=== PATIENT | male | born 1955 | race Caucasian/White ===

== ENCOUNTER 2017-01-07 18:03 | Inpatient (IN) ==
[2017-01-07] MEDS ORDERED: ACETAMINOPHEN 325 MG TABLET PO PRN (21:04)
[2017-01-07] MEDS ORDERED: LACTATED RINGERS 2,000 ML IV ONE (21:06)
--- NOTE | 2017-01-07 21:09 | General Surg History&Physical ---
Assessment and Plan (1) Small bowel obstruction due to adhesions Status: Acute Assessment and plan: This patient has a small bowel obstruction recurrent the last one was 4 years ago. He does not have any acute indications for operative intervention. We will treat him with NG tube decompression and IV fluid and resuscitate him. He did have acute kidney injury with a creatinine of 1.9 at the outside hospital. We will repeat his labs tomorrow continue NG tube to suction overnight. Abdominal x-ray in the morning. Current Visit: Yes History of Present Illness Chief complaint: Abdominal pain History of present illness: Mr. Argueta is a 61 year old male with a history of recurrent small bowel obstructions who was directly admitted from [place] [facility] for small bowel obstruction. The patient states that he has had 4 bowel obstructions in the past and actually his first operation was for a bowel obstruction done about 15 years ago. He does not know what the cause was of the bowel obstruction or whether or not anything was removed but he has had 3 bowel obstruction since then and his last one was 5 years ago in [place], [place]. This was treated with bowel rest and decompression with an NG tube and he responded to this well. He started having pain today around noon and went to the ER for evaluation. He was found to have a small bowel obstruction on CT scan and directly admitted here for treatment. Allergies Allergy/AdvReac Type Severity Reaction Status Date / Time No Known Allergies Allergy Verified 01/07/17 21:04 Medical,Surgical,& Family Hx - Medical History Neurology: History of: Parkinson's Disease Gastrointestinal: History of: Bowel Obstruction, GERD - Surgical History Neurologic Surgeries: Patient denies: Neurologic Surgery Abdominal Surgeries: Surgical HX of: Abdominal Surgery (bowel obstruction), Cholecystectomy - Family History Family History: Reports;: Family Stroke (father), Additional Family History ( COPD- FATHER) - Social History Smoking Status: Never smoker Frequency of Alcohol Use: None Type of Drug Use: None Exam - Constitutional Vitals: Period Temp Pulse Resp BP Sys/Simon Pulse Ox Last 24 Hr 97 F 104 18 135/87 100 General appearance: no acute distress, over weight - Head Head exam: Present: normal inspection, normocephalic - Eye Eye exam: Present: EOMI Pupils: Present: NERY - ENT ENT exam: Present: normal exam Mouth exam: Present: normal external inspection, normal voice - Neck Neck exam: Present: normal inspection, trachea midline - Respiratory Respiratory exam: Present: clear to auscultation bilaterally. Absent: accessory muscle use, chest wall tenderness - Cardiovascular Cardiovascular exam: Present: RRR. Absent: systolic murmur, tachycardia - GI/Abdominal GI/Abdominal exam: Present: hypoactive bowel sounds, tenderness (Minimal diffuse abdominal tenderness with no peritoneal signs or focal point tenderness) , soft. Absent: hernia, rebound - Extremities Exam Extremities exam: Present: normal inspection, normal capillary refill - Back Exam Back exam: Present: normal inspection - Neurological Exam Neurological exam: Present: alert, oriented X3 Speech: Present: normal - Skin Skin exam: Present: normal color, warm - Constitutional Constitutional: Present: as per HPI - EENT Nose, mouth and throat: Present: as per HPI - Cardiovascular Cardiovascular: Present: as per HPI - Respiratory Respiratory: Present: as per HPI - Gastrointestinal Gastrointestinal: Present: as per HPI - Genitourinary Genitourinary: Present: as per HPI - Musculoskeletal Musculoskeletal: Present: as per HPI - Neurological Neurological: Present: as per HPI - Endocrine Endocrine: Present: as per HPI Hematologic/Lymphatic: Present: as per HPI Results - Diagnostic Findings Procedure: CT Abdomen and Pelvis: image reviewed by me, report reviewed by me ( Small bowel obstruction)
--- NOTE | 2017-01-07 21:35 | XRay Report ---
XR chest 1V portable Indication: NG tube placement. Comparison: None. Technique: Portable AP chest was performed. Findings: NG tube appears to extend into the upper gastric fundus and the tip lies just within the GE junction. Impression: 1. NG tube placement as detailed. 01/07/2017 9:31 PM PROCEDURE INTERPRETED AT [facility] DEPARTMENT OF RADIOLOGY Final Report Signed by: Dr. Gabriele Clay
[2017-01-07] MEDS: LACTATED RINGERS 1,000 ML IV SCH (22:28)
[2017-01-07] MEDS: HYDROmorphone 2 MG/1 ML VIAL IV PRN (23:20)
[2017-01-07] MEDS: ONDANSETRON 4 MG/2 ML VIAL IV PRN (23:21)
[2017-01-08 00:13] LABS: Apearance,Urine Slightly Hazy (Clear); Bilirubin,Urine Negative (Negative); Blood, Urine Negative (Negative); Glucose,Urine (UA) Negative (Negative); Granular Casts,Urine 1 /LPF (0-1); Hyaline Casts,Urine 24 /LPF (0-3); Ketones,Urine 5 mg/dL (Negative); Mucus,Urine Occasional /LPF (Occasional); Nitrite,Urine Negative (Negative); Protein,Urine Negative; Urine Color Yellow (Yellow); Urine Specific Gravity 1.014 (1.001-1.035); Urine Urobilinogen < 2.0 EU/DL (0.2-1.0)
[2017-01-08 06:34] LABS: Calcium 9.3 MG/DL (8.5-10.1); Osmolality,Calculated 284.3 MOS/KG (273-304); Potassium 4.6 MMOL/L (3.5-5.1)
[2017-01-08 06:47] LABS: Basophils % 0.1 % (0.0-0.8); Eosinophils % 0.1 % (0.00-10.9); Hematocrit 42.7 VOL% (42.0-52.0); Hemoglobin 15.1 GM/DL (14.0-18.0); Immature Granulocytes % 0.5 %; Immature Granulocytes Absolute 0.09 #; Lymphocytes # 1.4 10*3/uL (1.4-4.0); Lymphocytes % 8.2 % (21.2-54.2); Mean Corpuscular HGB Conc 35.4 GM/DL (32-36); Mean Corpuscular Hemoglobin 31 PG (27-34); Mean Corpuscular Volume 87.7 FL (87-102); Mean Platelet Volume 9.2 FL (9.6-12.0); Monocytes % 6.2 % (1.7-12.7); Neutrophils # 14.2 10*3/uL (1.4-7.4); Neutrophils % 84.9 % (38.7-73.9); Platelet Count 340 T/CUMM (130-400); Red Blood Count 4.87 MC/CUMM (3.8-5.5); Red Cell Distribution Width 12.8 % (9.3-17.3); White Blood Count 16.8 T/CUMM (4-12)
[2017-01-08] MEDS ORDERED: LACTATED RINGERS 1,000 ML IV ONE (07:15)
[2017-01-08] MEDS: LACTATED RINGERS 1,000 ML IV SCH ×4 (07:41→22:52)
[2017-01-08] MEDS ORDERED: PANTOPRAZOLE 40 MG TABLET PO SCH (09:00)
--- NOTE | 2017-01-08 12:15 | General Surgery Progress Note ---
Assessment and Plan (1) Small bowel obstruction due to adhesions Status: Acute Assessment and plan: This patient appears to be responding to nonoperative management. We will get a small bowel series with Gastrografin both for diagnostic and therapeutic effect. Continue NG tube to low intermittent wall suction and additional liter of LR to help with resuscitation today. Repeat labs tomorrow. Current Visit: Yes Subjective Patient reports: Present: no new complaints, feels better, pain is less, afebrile. Absent: nausea, vomiting Narrative: The patient had about 2 L of NG tube output that appears bilious. He feels much better after NG tube placement. No flatus or bowel movements yet. No abdominal pain this morning. White blood cell count is improving. Creatinine is also improving down to 1.7 this morning Exam - Constitutional Vitals: Period Temp Pulse Resp BP Sys/Simon Pulse Ox Last 24 Hr 97 F 104 18 135/87 100 General appearance: no acute distress, over weight - Head Head exam: Present: normal inspection, normocephalic - Eye Eye exam: Present: EOMI Pupils: Present: NERY - ENT ENT exam: Present: normal exam Mouth exam: Present: normal external inspection, normal voice - Neck Neck exam: Present: normal inspection, trachea midline - Respiratory Respiratory exam: Present: clear to auscultation bilaterally. Absent: accessory muscle use, chest wall tenderness - Cardiovascular Cardiovascular exam: Present: RRR. Absent: systolic murmur, tachycardia - GI/Abdominal GI/Abdominal exam: Present: distended, hypoactive bowel sounds, soft. Absent: tenderness, rebound - Extremities Exam Extremities exam: Present: normal inspection, normal capillary refill - Back Exam Back exam: Present: normal inspection - Neurological Exam Neurological exam: Present: alert, oriented X3 Speech: Present: normal - Skin Skin exam: Present: normal color, warm Results - Labs CBC & BMP: 01/08/17 04:00 01/08/17 04:00
[2017-01-08] MEDS: ONDANSETRON 4 MG/2 ML VIAL IV PRN ×2 (12:50→23:09)
[2017-01-08] MEDS: HYDROmorphone 2 MG/1 ML VIAL IV PRN ×2 (12:53→23:10)
[2017-01-08] MEDS: PANTOPRAZOLE 40 MG VIAL IV SCH (13:33)
--- NOTE | 2017-01-08 14:04 | XRay Report ---
Referring Physician: Dg Damian Exam: XR abdomen 2V Date: January 08, 2017 at 7:51 AM Reason: Generalized abdominal pain Comparison: CT abdomen and pelvis January 07, 2017 Findings: A feeding tube is in place with its distal tip curled just within the stomach near the gastroesophageal junction. There are several distended loops of small bowel with air-fluid levels present. However, there is also mild air within the colon. This is concerning for partial small bowel obstruction. No free air is identified. The renal shadows are largely obscured. Surgical clips are present within the right upper abdomen, consistent with cholecystectomy. No acute osseous process is seen. Impression: 1. A feeding tube is in place with its distal tip curled just within the stomach near the gastroesophageal junction. 2. There are distended loops of small bowel with air-fluid levels present. However, there is also mild air within the colon. This is concerning for partial small bowel obstruction. PROCEDURE INTERPRETED AT [facility] DEPARTMENT OF RADIOLOGY Final Report Signed by: Dr. Desirae Lozano
[2017-01-08] MEDS: ENOXAPARIN 40 MG/0.4 ML SYRINGE SUBCUT SCH (14:27)
--- NOTE | 2017-01-08 15:10 | Fluoroscopy Report ---
Referring Physician: Dg Damian Exam: FL small bowel series Date: January 08, 2017 at 9:55 AM Reason: Bowel obstruction, use Gastrografin Comparison: Outside CT abdomen and pelvis January 07, 2017 Technique: A 1st pressman on web press KUB image was obtained prior to the procedure. Delayed images of the abdomen were then acquired over 3.5 hours. Spot images of the ileocecal junction were not obtained due to use of Gastrografin which limits evaluation of fine detail. Findings: There are several distended loops of proximal small bowel, but there is mild contrast within the colon on the 3.5 hour image. This is concerning for partial small bowel obstruction. A transition zone is difficult to identify but may be located within the left lower quadrant. No intraluminal filling defect is identified at the small bowel. The stomach demonstrates normal contour and fold pattern. A feeding tube is in place with its distal tip at the junction of the gastric body and fundus. Surgical clips are seen within the right upper quadrant, suggesting cholecystectomy. Impression: There are several distended loops of proximal small bowel, but contrast is seen within the colon on the 3.5 hour image. This is concerning for partial small bowel obstruction. A transition zone is difficult to identify but may be located within the left lower quadrant. PROCEDURE INTERPRETED AT [facility] DEPARTMENT OF RADIOLOGY Final Report Signed by: Dr. Desirae Lozano
[2017-01-09 06:58] LABS: Basophils % 0.3 % (0.0-0.8); Eosinophils # 0.2 10*3/uL (0.0-0.87); Hematocrit 40.2 VOL% (42.0-52.0); Hemoglobin 13.4 GM/DL (14.0-18.0); Immature Granulocytes % 0.4 %; Immature Granulocytes Absolute 0.04 #; Lymphocytes # 1.4 10*3/uL (1.4-4.0); Mean Corpuscular HGB Conc 33.3 GM/DL (32-36); Mean Corpuscular Hemoglobin 30 PG (27-34); Mean Corpuscular Volume 90.7 FL (87-102); Mean Platelet Volume 9.6 FL (9.6-12.0); Monocytes # 0.6 10*3/uL (0.11-0.8); Monocytes % 6.7 % (1.7-12.7); Neutrophils # 7.1 10*3/uL (1.4-7.4); Neutrophils % 75.6 % (38.7-73.9); Platelet Count 287 T/CUMM (130-400); Red Blood Count 4.43 MC/CUMM (3.8-5.5); Red Cell Distribution Width 13.1 % (9.3-17.3); White Blood Count 9.4 T/CUMM (4-12)
[2017-01-09 07:33] LABS: Calcium 8.7 MG/DL (8.5-10.1)
[2017-01-09 07:34] LABS: Magnesium 2.2 MG/DL (1.8-2.4); Potassium 4.1 MMOL/L (3.5-5.1)
[2017-01-09] MEDS: LACTATED RINGERS 1,000 ML IV SCH (08:51)
--- NOTE | 2017-01-09 08:52 | XRay Report ---
Exam: XR abdomen 2V Date: 01/09/2017 4:00 AM Comparison: Small bowel series 01/08/2017 Indication: Small bowel obstruction, follow-up Technique:[Supine and erect abdomen] Findings: The oral contrast has cleared from the left dilated small bowel. The contrast now projects in the colon with air-fluid levels. No free air is identified. Prior cholecystectomy. The nasogastric tube is coiled upon itself at the GE junction. Impression: Improved partial SBO. The nasogastric tube is coiled upon itself at the GE junction and ideally should be advanced further into the stomach. This report was called to patient's nurse, Cyndi at 8:45 AM on 01/09/2017. PROCEDURE INTERPRETED AT [facility] DEPARTMENT OF RADIOLOGY Final Report Signed by: Dr. Carrol Claros
[2017-01-09] MEDS: PANTOPRAZOLE 40 MG VIAL IV SCH (09:27)
--- NOTE | 2017-01-09 10:23 | General Surgery Progress Note ---
Assessment and Plan (1) Small bowel obstruction due to adhesions Status: Acute Assessment and plan: Continue nonoperative management. The patient's bowel obstruction appears to have resolved. Discontinue NG tube and advance diet. Possible discharge home later today. Current Visit: Yes Subjective Patient reports: Present: no new complaints, feels better, flatus, bowel movement, afebrile Exam - Constitutional Vitals: Period Temp Pulse Resp BP Sys/Simon Pulse Ox Last 24 Hr 97.2 F-97.9 F 76-90 16-18 113-136/66-77 90-94 General appearance: no acute distress, over weight - Head Head exam: Present: normal inspection, normocephalic - Eye Eye exam: Present: EOMI Pupils: Present: NERY - ENT ENT exam: Present: normal exam Mouth exam: Present: normal external inspection, normal voice - Neck Neck exam: Present: normal inspection, trachea midline - Respiratory Respiratory exam: Present: clear to auscultation bilaterally. Absent: accessory muscle use, chest wall tenderness - Cardiovascular Cardiovascular exam: Present: RRR. Absent: systolic murmur, tachycardia - GI/Abdominal GI/Abdominal exam: Present: normal bowel sounds, soft. Absent: distended, tenderness, rebound - Extremities Exam Extremities exam: Present: normal inspection, normal capillary refill - Back Exam Back exam: Present: normal inspection - Neurological Exam Neurological exam: Present: alert, oriented X3 Speech: Present: normal - Skin Skin exam: Present: normal color, warm Results - Labs CBC & BMP: 01/09/17 04:50 01/09/17 04:50
[2017-01-09] MEDS ORDERED: DEXT 5% NACL 0.45% KCL 40 MEQ 40 MEQ/1,000 ML BAG IV SCH (10:30)
[2017-01-09] MEDS: ENOXAPARIN 40 MG/0.4 ML SYRINGE SUBCUT SCH (11:58)
[2017-01-09] MEDS ORDERED: NON-FORMULARY MEDICATION (Omeprazole [Omeprazole] 20 MG) PO SCH (12:30)
[2017-01-09] MEDS ORDERED: CARBIDOPA PO SCH (15:00)
[2017-01-09] MEDS ORDERED: LEVODOPA PO SCH (15:00)
[2017-01-09] MEDS ORDERED: CARBIDOPA/LEVODOPA 25-100 MG TABLET PO SCH (15:00)
--- NOTE | 2017-01-09 15:25 | Discharge Summary ---
Hospital Course - Hospital Course Hospital Course: Patient is a 61-year-old male currently admitted from outside facility with small bowel obstruction; apparently had a history of recurrent small bowel obstructions. The patient was treated with NG tube, bowel rest and IV fluids. He began to pass flatus and passed his bowels at which time the NG tube was discontinued and diet was initiated. He advanced and tolerating his diet without difficulty. He was voiding without difficulty and tolerating activity without difficulty. He was ultimately discharged home in good condition. Diagnosis - Discharge Diagnosis (1) Small bowel obstruction due to adhesions Status: Acute Specialty Discharge - Follow Up or Referrals Follow up with: Dg Damian MD [Physician] - (as needed) Discharge Plan - Discharge Data Disposition: Disch To Home/Self Care Condition at Discharge: Stable Discharge Diet: advance to your usual diet Activity: resume usual activities as tolerated Contact your physician if you experience:: Nausea/Vomiting, pain uncontrolled by pain medications (abdominal pain or distension; failure to pass flatus or bowels) - Discharge Medications Continue Pravastatin [Pravachol] 40 mg PO DAILY Omeprazole 20 mg PO BID Linaclotide [Linzess] 290 mcg PO AC BREAKFAST Valsartan/Hctz 80-12.5 [Diovan Hct 80-12.5] 1 tablet PO DAILY Carbidopa/Levodopa [Carbidopa-Levo ER 25-100 Tab] 1 each PO TID - Follow Up or Referral Follow Up: Dg Damian MD [Physician] - (as needed) - Forms/Instructions Instructions: Bowel Obstruction (DC) Exam - Constitutional Vitals: Period Temp Pulse Resp BP Sys/Simon Pulse Ox Last 24 Hr 97.2 F-98.9 F 76-86 16-18 113-143/67-77 90-96 General appearance: no acute distress - Head Head exam: Present: normal inspection, normocephalic - Eye Eye exam: Absent: conjunctival injection, scleral icterus - Respiratory Respiratory exam: Present: clear to auscultation bilaterally - Cardiovascular Cardiovascular exam: Present: regular rate and rhythm - GI/Abdominal GI/Abdominal exam: Present: normal bowel sounds, soft. Absent: distended, tenderness - Extremities Exam Extremities exam: Absent: calf tenderness, edema - Neurological Exam Neurological exam: Present: alert, oriented X3 - Psychiatric Psychiatric exam: Present: normal affect, normal mood - Skin Skin exam: Present: normal color, warm Discharge Results Labs on day of discharge: Labs from last 24 hours 01/09/17 01/09/17 04:50 04:50 WBC 9.4 D RBC 4.43 Hgb 13.4 L Hct 40.2 L MCV 90.7 MCH 30 MCHC 33.3 RDW 13.1 Plt Count 287 MPV 9.6 Neut % (Auto) 75.6 H Lymph % (Auto) 15.0 L Dolores % (Auto) 6.7 Eos % (Auto) 2.0 Baso % (Auto) 0.3 Neut # (Auto) 7.1 Lymph # (Auto) 1.4 Dolores # (Auto) 0.6 Eos # (Auto) 0.2 Baso # (Auto) 0.0 Immature Gran % 0.4 Nucleated RBC % 0.0 Immature Gran # 0.04 Nucleated RBCs # 0.00 Sodium 143 Potassium 4.1 Chloride 104 Carbon Dioxide 33 H Anion Gap 10.1 BUN 20 H Creatinine 1.50 H GFR Calculation 69 BUN/Creatinine Ratio 13.00 Glucose 89 Calculated Osmolality 286.0 Calcium 8.7 Magnesium 2.2 - Imaging and Cardiology Procedure: Abdominal x-ray: image reviewed by me, report reviewed by me (Follow- up x-ray revealed decrease distention with improved suspected partial small bowel obstruction), X-ray: image reviewed by me, report reviewed by me (Small bowel series performed with Gastrografin. It was felt the patient was passing contrast through to the colon without complication; possible partial small bowel obstruction noted.) DS: Provider Date of admission: 01/07/17 19:09 Primary care physician: Jennifer Sandoval MD Attending physician on admission: Dg Damian MD Discharging clinician: Alexandra Costello PA-C
[2017-01-09 17:39] VITALS: BP 140/72
[2017-01-09] MEDS ORDERED: OMEPRAZOLE 20 MG CAPSULE PO SCH (21:00)
== END 2017-01-09 18:24 | disposition home or self-care (01) | DRG 390 ==
LOC: N.5E 19:09
PROVIDERS: ADMIT Surgery; ATTEND Surgery